=== PATIENT | male | born 1985 | race Caucasian/White ===

== ENCOUNTER 2018-09-13 12:43 | Emergency (ER) | payer SELFPAY ==
[2018-09-13 12:44] VITALS: BP 145/91; PULSE 103; RESP 18; TEMP 36.3; O2SAT 96; BMI 22.1
--- NOTE | 2018-09-13 13:17 | RAD_ITS ---
STUDY: X-RAY CHEST REASON FOR EXAM: Male, 33 years old. Chest pain with radiation to left arm and neck. TECHNIQUE: Frontal and lateral views of the chest. COMPARISON: None. FINDINGS: The lungs are mildly hyperexpanded. There is no demonstrated pleural abnormality. Normal size heart. Normal mediastinum and guillermina. Normal visualized pulmonary arteries. Normal visualized aortic arch and descending thoracic aorta. Normal visualized thoracic spine. Normal visualized ribs, clavicles, and shoulders. There is no demonstrated abnormality of the visualized soft tissue structures of the upper abdomen. RAD/Chest PA and Lateral IMPRESSION: Hyperexpansion with no acute pathology. Electronically Signed: Keenan Salgado MD at 15:00 EDT , Service support ,
--- NOTE | 2018-09-13 13:17 | EKG12_ITS ---
Test Reason : CP Blood Pressure : / mmHG Vent. Rate : 089 BPM Atrial Rate : 089 BPM P-R Int : 112 ms QRS Dur : 082 ms QT Int : 348 ms P-R-T Axes : 062 074 064 degrees QTc Int : 423 ms Normal sinus rhythm Nonspecific ST abnormality Abnormal ECG Confirmed by BENITA BOONE, PAOLA ([id number]), editor news GENEVIEVE CALVILLO ([id number]) on 09/20/2018 9:45:34 AM Referred By: PHILIPPE/CHULA Confirmed By:PAOLA JOY MD
--- NOTE | 2018-09-13 13:21 | ED.DCSUM_ITS ---
- ER Visit Summary Date of Service: 09/13/18 Chief Complaint: Chest pain History of Present Illness: The patient is a 33 M who states for the past 6 months he has had intermittent left-sided anterior chest pain. Described as sharp. It last anywhere from seconds to 10 minutes. He states sometimes he belches and thinks it has been indigestion. But now has been getting tingling in the left arm and sharp burning pain in the neck and now last night into the left knee. Today he has had a burning sensation left side of the neck when he rubbed it seemed to make it better and moved to a burning sensation in the right triceps region. He decided it was time to get evaluated. He has no primary care physician. Physical Examination: Afebrile vital signs are stable Gen: Well-nourished well-developed Head: Normocephalic atraumatic Eyes: Perrl EOMI ENT: TMs clear no rhinorrhea moist mucous membranes Neck: Supple no lymphadenopathy no JVD nontender CVS: Regular rate rhythm no murmurs normal S1-S2 Respiratory: No distress clear to auscultation bilaterally chest nontender Abdomen: Soft nontender nondistended normal bowel sounds no masses Back: Nontender Extremity: Nontender no edema Skin: Normal color no rash Neuro: alert orientated ?3 CN II-XII intact normal strength sensation reflexes gait cerebellar Psych: Normal affect normal mood Test Results: EKG sinus rhythm at a rate of 89. No ectopy. CBC and BMP were normal. Troponin is negative. Chest x-ray shows no acute findings. Emergency Department Course and Treatment: Patient had no events on the monitor. I do not believe this chest pain is cardiac or other emergent condition. Patient will be encouraged to follow-up with primary care. Place him on antacid Pepcid. Far as the neck pain could be cervical radiculopathy. Certainly the burning makes you think nerve. Encouraged him to establish primary care and follow-up return if worsening or concerns. Impression: 1. Chest pain 2. Cervical radiculopathy This note was generated with [employer]ube[employer] dictation software. It may contain incorrect words, spelling, and punctuation that were not noted in review of the chart prior to signing ED Disposition - Plan for ED Patient: Disposition: Home or Assisted Living Chief Complaint: Chest Pain Instructions: ED Chest Pain NonCardiac, ED Cervical Radiculopathy Prescriptions: Famotidine [Pepcid] 20 mg PO BID #28 tab Referrals: Care Physician,No Primary [Primary Care Provider] - Key Szymanski MD [STAFF PHYSICIAN] - As soon as possible
[2018-09-13 13:25] LABS: Absolute Lymphocyte Count 2.51 X10^3/ul (0.83-4.51); Absolute Neutrophil Count 4.8 X10^3/uL (2.0-7.7); Basophil# 0.06 X10^3/uL; Basophil% 0.7 % (0-1); Eosinophil# 0.21 X10^3/uL; Eosinophils% 2.6 % (0-5); Hematocrit 46.6 % (40-54); Hemoglobin 15.6 g/dl (13.0-16.5); Lymphocyte # 2.51 X10^3/ul (4.0); Lymphocyte % 30.9 % (19-41); Mean Corp Hgb Conc 33.5 g/gl (32-36); Mean Corpuscular Hgb 29.9 pg (27.0-32.0); Mean Corpuscular Volume 89.3 fL (80-94); Mean Platelet Vol. 11.3 fl (6.2-12.0); Monocyte% 6.2 % (0-10); Neutrophil # 4.83 X10^3/uL (2.7-7.7); Neutrophil % 59.5 % (47-70); Platelet Count 347 K/mm3 (150-450); RBC Distribution Width CV 13.2 % (11.6-14.6); RBC Distribution Width SD 43.3 fl (35.1-43.9); Red Blood Count 5.22 M/mm3 (4.6-6.2); White Blood Count 8.1 K/mm3 (4.4-11.0)
--- NOTE | 2018-09-13 13:28 | ED.RN ---
NO OLD EKG
[2018-09-13 13:29] LABS: POSITIVE COUNT NO; POSITIVE DIFFERENTIAL NO; POSITIVE MORPHOLOGY NO
[2018-09-13 13:37] LABS: Anion Gap 8 (5-15); BUN 9 mg/dL (7-18); BUN/Creat Ratio 8.8 RATIO (10-20); Calcium,Total 9.2 mg/dL (8.5-10.1); Chloride 103 mmol/L (98-107); Creatinine, Serum 1.02 mg/dL (0.70-1.30); EST Glomerular Filtration Rate 89 mL/min (>60); Est Glom Filt Rate - Afr Amer 107 mL/min (>60); Estimated Creatinine Clearance 103.92 ml/min; Glucose 95 mg/dL (74-106); Potassium 3.9 mmol/L (3.5-5.1); Sodium Level 137 mmol/L (136-145)
[2018-09-13 14:08] VITALS: BP 124/88; PULSE 82; RESP 18; O2SAT 96
[2018-09-13 15:41] VITALS: BP 129/95; PULSE 80; RESP 16; O2SAT 99
== END 2018-09-13 15:42 | disposition home or self-care (01) ==
PROVIDERS: Emergency Provider Emergency Medicine
DX: R07.9 Chest pain, unspecified (principal); M54.12 Radiculopathy, cervical region; Z72.0 Tobacco use
CPT/HCPCS: 71046; 80048; 84484; 85025; 93005; 99284; A4216

== ENCOUNTER 2024-02-06 11:25 | Emergency (ER) | payer OTHER, SELFPAY ==
[2024-02-06 11:26] VITALS: BP 132/84; PULSE 108; RESP 20; TEMP 36.1; O2SAT 98; BMI 18.8
--- NOTE | 2024-02-06 11:36 | EDS_ITS ---
HPI <TRENA Smyth - Last Filed: 02/06/24 11:54> History of Present Illness Chief Complaint: Substance Abuse Narrative Narrative: 38-year-old male states he tried meth for the first time yesterday at 1 PM. He felt sweaty and shaky like his brain was not working well. He feels better today but noticed that the veins in his arm look sunken. He is also had 4-5 episodes of diarrhea. He states he is drinking plenty of fluids and Gatorade. He has no vomiting or abdominal pain. No chest pain or shortness of breath. He was mainly concerned about his veins not appearing normal. PFSH <TRENA Smyth - Last Filed: 02/06/24 11:54> [facility] Home Medications famotidine 20 mg tablet 20 mg PO BID #28 tabs 09/13/18 [Rx Last Taken Unknown] Allergy/AdvReac Type Severity Reaction Status Date / Time amoxicillin Allergy Hives Verified 02/06/24 11:25 Social History (System 08/27/21 @ 14:58 by Hubert Herrera) Smoking Status: Current every day smoker tobacco type: cigarettes ROS <TRENA Smyth - Last Filed: 02/06/24 11:54> ROS ED ROS Narrative Constitutional: Negative for fever, chills, malaise. CVS: Negative for chest pain, syncope. Respiratory: Negative for shortness of breath. GI: Positive for diarrhea. Negative for abdominal pain, nausea, vomiting. EXAM <TRENA Smyth - Last Filed: 02/06/24 11:54> Physical Exam Narrative Exam Narrative: CONST: Patient sitting in no acute distress. EYES: Normal inspection. ENT: Normal inspection, moist mucous membranes. NECK: Normal inspection. RESP: No respiratory distress, CTAB. CVS: Slightly tachycardic around 105 bpm with regular rhythm, no murmur, no gallop. ABD: Soft and nontender, no guarding or rebound, nondistended. SKIN: Color normal, no rash, warm, dry, intact. EXTREMITIES: Normal appearance, no pedal edema. NEURO: Oriented x4. PSYCH: Normal affect. Const Vital Signs: 02/06/24 11:26 Temperature 97 F L Temperature Source Temporal Pulse Rate 108 H Respiratory Rate 20 H Blood Pressure 132/84 H Blood Pressure Mean 100 Pulse Ox 98 Oxygen Delivery Method Room Air <Dr. Rajat Hernandez DO - Last Filed: 02/06/24 11:51> Physical Exam Const Vital Signs: 02/06/24 11:26 Temperature 97 F L Temperature Source Temporal Pulse Rate 108 H Respiratory Rate 20 H Blood Pressure 132/84 H Blood Pressure Mean 100 Pulse Ox 98 Oxygen Delivery Method Room Air [facility] <TRENA Smyth - Last Filed: 02/06/24 11:54> [facility] Narrative Medical decision making narrative: Patient used meth yesterday. Today he was concerned the veins in his arms look more sunken than usual. This is his only complaint. He has had diarrhea today but states he drank 5 bottles water and 1 bottle of Gatorade. He appears well and nontoxic. HR is 108 with otherwise normal vital signs. He has moist mucous membranes. Abdomen soft and nontender. I do not think he requires IV fluids as he is tolerating p.o. intake. I reassured him the vasculature in his arms and distal pulses are normal and advised he no longer uses meth. He was discharged in stable condition. <Dr. Rajat Hernandez DO - Last Filed: 02/06/24 11:51> [facility] Narrative Medical decision making narrative: Patient used meth yesterday. Today he was concerned the veins in his arms look more sunken than usual. This is his only complaint. He has had diarrhea today but states he drank 5 bottles water and 1 bottle of Gatorade. He appears well and nontoxic. HR is 108 with otherwise normal vital signs. He has moist mucous membranes. Abdomen soft and nontender. I do not think he requires IV fluids as he is tolerating p.o. intake. I reassured him the vasculature in his arms and distal pulses are normal and advised he no longer uses meth. He was discharged in stable condition. I have personally performed a face to face assessment of the patient and have reviewed the KIMMY Note. I performed a substantive portion of the visit including all aspects of the following. My rocha findings include: History is 38-year-old male presenting to the emergency room stating concern for dehydration. Patient states that yesterday after work he ingested some methamphetamines. He states that after ingesting it he began to get very sweaty. Today he has had several episodes of diarrhea and noticed that the veins on his arms seemed rather flat. He read online that he should seek treatment in the emergency department. He is drink at least 48 ounces of water this morning plus a Gatorade. He is denying any chest pain palpitations. He has not had syncope. No vomiting. Patient has yet to go to sleep. He states today is his mom's birthday and he is worried about not being medically fit for her birthday. Exam is 38-year-old male sitting comfortably in the bed. He is slightly tachycardic and states that he is very anxious about the effects of amphetamines. He is got less than 2-second capillary refill of fingers. Leg veins appear normal. Moist mucous membranes. I do not see any localizing physical exam findings. Medical Decison Making I recommend the patient refrain from any stimulant use. He should continue oral hydration. He is advised to keep his urine a light yellow to clear. He was advised to be cautious not to drink too much water to cause water intoxication. Patient notes understanding of the plan. He is not looking for any rehab as he does not feel addicted to substances. He states that he strictly use the amphetamines to give him some energy after work. 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 I recommend you do not use meth. Drink plenty of fluids. Disposition Disposition: Home, Self Care Discharge Date/Time: 02/06/24 11:53
== END 2024-02-06 11:53 | disposition home or self-care (01) ==
LOC: ED 11:49
PROVIDERS: Emergency Provider Emergency Medicine; Visit Provider Emergency Medicine
DX: Z71.1 Person with feared health complaint in whom no diagnosis is made (principal); F17.210 Nicotine dependence, cigarettes, uncomplicated; F15.90 Other stimulant use, unspecified, uncomplicated
CPT/HCPCS: 99282